=== PATIENT | female | born 1945 | race Caucasian/White ===

== ENCOUNTER 2016-11-09 13:04 | Emergency (ER) | payer OTHER ==
[2016-11-09 13:33] VITALS: BP 138/73
--- NOTE | 2016-11-09 13:51 | UC ---
Hand/Wrist HPI - HPI Summary HPI Summary: Hit R 2nd finger with slelitammer 3 days ago, sustained laceration near nail, now skin is all white and is concerned about that. Has been keeping it covered with abx ointment. - History Of Current Complaint Chief Complaint: UCUpperExtremity Stated Complaint: FINGER INJURY Time Seen by Provider: 11/09/16 13:39 Hx Obtained From: Patient ?: No Onset/Duration: Sudden Onset Severity Initially: Moderate Severity Currently: Mild Character Of Pain: Dull, Aching, Throbbing Alleviating: Rest, Elevation Associated Signs And Symptoms: Positive: Swelling Related History: Dominant Hand Right - Allergies/Home Medications Allergies/Adverse Reactions: Allergies Allergy/AdvReac Type Severity Reaction Status Date / Time No Known Allergies Allergy Verified 11/09/16 13:33 Home Medications: Home Medications NK [No Home Medications Reported] 11/09/16 [History Confirmed 11/09/16] PMH/Surg Hx/FS Hx/Imm Hx Previously Healthy: Yes - Surgical History Surgical History: None - Family History Known Family History: Negative: Blood Disorder - Social History Lives: Alone Alcohol Use: None Substance Use Type: None Smoking Status (MU): Never Smoked Tobacco Review of Systems Constitutional: Negative Skin: Other - crush injury to R 2nd finger, 1.5cm lac Eyes: Negative ENT: Negative Respiratory: Negative Cardiovascular: Negative Gastrointestinal: Negative Genitourinary: Negative Motor: Negative Neurovascular: Negative Musculoskeletal: Negative Neurological: Negative Psychological: Negative All Other Systems Reviewed And Are Negative: Yes Physical Exam Triage Information Reviewed: Yes Appearance: Well-Appearing, No Pain Distress, Well-Nourished Vital Signs: Initial Vital Signs Temp 98.7 F 11/09/16 13:28 Pulse 72 11/09/16 13:28 Resp 18 11/09/16 13:28 BP 138/73 11/09/16 13:28 Pulse Ox 98 11/09/16 13:28 Vital Signs Reviewed: Yes Eye Exam: Normal Eyes: Positive: Conjunctiva Clear ENT Exam: Normal ENT: Positive: Normal ENT inspection, Hearing grossly normal, Pharynx normal, TMs normal Dental Exam: Other - dentures Neck exam: Normal Neck: Positive: Supple, Nontender, No Lymphadenopathy Respiratory Exam: Normal Respiratory: Positive: Chest non-tender, Lungs clear, Normal breath sounds, No respiratory distress, No accessory muscle use Cardiovascular Exam: Normal Cardiovascular: Positive: RRR, No Murmur Musculoskeletal Exam: Other - R 2nd fingertip tender Musculoskeletal: Positive: Strength Intact, ROM Intact Neurological Exam: Normal Neurological: Positive: Alert Skin Exam: Other - severely macerated 1.5cm circumferential lac to R 2nd fingertip Hand/Wrist Course/Dx - Differential Dx/Diagnosis Provider Diagnoses: R 2nd finger crush injury Discharge - Discharge Plan Condition: Stable Disposition: HOME Patient Education Materials: Crush Injury (ED) Additional Instructions: No broken bones detected on x-ray. Please keep the area covered -- do not put on so much ointment that it turns the skin white. You can wash the area 2-3 times daily.
--- NOTE | 2016-11-09 14:24 | RAD ---
Indication: Crush injury to RIGHT second finger 3 days ago. Pain. Comparison: None. Technique: 3 views RIGHT second finger. REPORT AND IMPRESSION: Normal articular alignment. Subtle osseous irregularity at the volar base of the middle phalanx which may reflect a nondisplaced fracture without definitive involvement of the articular surface. Diffuse soft tissue swelling. 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
== END 2016-11-09 14:40 | disposition left against medical advice (07) ==
LOC: UCEAST 13:04
DX: S67.190A Crushing injury of right index finger, initial encounter (principal); W27.8XXA Contact with other nonpowered hand tool, initial encounter; Y93.9 Activity, unspecified; Y99.9 Unspecified external cause status
CPT/HCPCS: 73140; 99202; G0463

== ENCOUNTER 2018-10-01 11:22 | Day surgery (SDC) | payer MEDICARE, OTHER ==
[~2018-10-01 11:22] MED LIST: Acetaminophen TAB* 325 MG PO PRN; Buffered Lidocaine 1% SYRIN* 1 ML/SYRINGE INTRADERM ONE
[2018-10-01] MEDS ORDERED: Lidocaine 1%* 5 ML VIAL ONE (11:29)
[2018-10-01] MEDS ORDERED: Tetracaine 0.5% OPTH.SOL 4 ML* 1 DROP BTL ONE (11:29)
[2018-10-01] MEDS ORDERED: Tropicamide 1% OPTH.SOL* BTL ONE (11:29)
[2018-10-01] MEDS ORDERED: Neomycin/Polymy/Dex OPHTH.OIN* 3.5 GM ONE (11:29)
[2018-10-01] MEDS ORDERED: Cyclopentolate 1% OPTH.SOL* 2 ML BTL ONE (11:29)
[2018-10-01] MEDS ORDERED: Ketorolac 0.5% OPHTH (NF) 0.5 % 5 ML BTL ONE (11:29)
[2018-10-01] MEDS ORDERED: Midazolam* 1 MG/ML 2 ML VIAL (2 MG) ONE (13:08)
[2018-10-01] MEDS ORDERED: fentaNYL* 50 MCG/ML 2 ML VIAL (100 MCG VIAL) ONE (13:08)
[2018-10-01 14:10] VITALS: BP 125/40
--- NOTE | 2018-10-01 16:29 | OP ---
DATE OF OPERATION/DATE OF DICTATION: 10/01/2018 - [facility] DATE OF : 1945. SURGEON: Dr. Sarthak Phan. CORE CLEANER: None. ANESTHESIA: Topical with intravenous sedation. PRE-OP DIAGNOSIS: Cataract, left eye. POST-OP DIAGNOSIS: Cataract, left eye. OPERATIVE PROCEDURE: Phacoemulsification and cataract extraction with posterior chamber intraocular lens implant, left eye. COMPLICATIONS: None. BLOOD LOSS: None. DESCRIPTION OF PROCEDURE: The patient was brought to the operating room and received a small amount of intravenous sedation. A drop of Tetracaine was placed in her left eye. She was prepped and draped in the usual sterile fashion for ophthalmic surgery and attention was directed to the left eye where a speculum was placed. A paracentesis was created at the 5 o'clock position and 0.1 cc of 1 percent preservative-free Lidocaine was injected into the anterior chamber followed by DisCoVisc. The eye was digitally stabilized while a 2.75 mm keratome was used to create a triplanar clear corneal incision at the 3 o'clock position. A continuous curvilinear capsulorrhexis was created with a cystotome and Utrata forceps. BSS on a cannula was used to hydrodissect the lens from the capsule. Phacoemulsification was performed in a divide-and- conquer technique to create four fragments which were removed. Residual cortical material was removed with irrigation and aspiration. DisCoVisc was used to inflate the capsular bag and an AUOOTO 18.0 diopter lens was folded and inserted into the capsular bag. DisCoVisc was removed using irrigation and aspiration. BSS on a cannula was used to hydrate the corneal stroma and seal the wound. At the end of the case the pupil was round and the lens was centered. The eye was of normal pressure and the wound was water tight. The speculum was removed and topical Maxitrol ointment was placed on the surface of the eye. The eye was closed, patched and shielded and the patient was sent to the recovery room in stable condition with post operative instructions and follow-up appointment given. [id number]/CPS #: [id number] MTDD
== END 2018-10-01 14:20 | disposition home or self-care (01) ==
LOC: OREAST 11:22
PROVIDERS: ATTEND Ophthalmology
DX: H25.11 Age-related nuclear cataract, right eye (principal); R73.03 Prediabetes; E78.5 Hyperlipidemia, unspecified; M19.90 Unspecified osteoarthritis, unspecified site
CPT/HCPCS: A9270-GY; J2250; J3010; V2632